=== PATIENT | female | born 1965 | race Caucasian/White ===

== ENCOUNTER → 2018-06-18 13:13 | Day surgery (SDC) | payer BC ==
--- NOTE | 2018-06-14 20:32 | HP ---
CC: Dr. Kiana Saenz * HISTORY AND PHYSICAL: DATE OF ADMISSION: 06/18/18 ADMITTING DIAGNOSES: 1. Calculus, right proximal ureter. 2. Right hydronephrosis. PLANNED PROCEDURE: Shock wave lithotripsy of calculus, right ureter and possible right stent insertion. SURGEON: Dr. Najera. HISTORY OF PRESENT ILLNESS: Jocy Bains is a 53-year-old lady who has had episodic right flank pain and nausea secondary to a calculus in the right proximal ureter. She had initially been managed conservatively, but followup ultrasound revealed persistent right hydronephrosis, and she would like to proceed with treatment of the calculus at this point. PAST MEDICAL HISTORY: Significant for: 1. Diabetes mellitus. 2. History of Neo's. 3. Depression. PAST SURGICAL HISTORY: Significant for cholecystectomy and tubal ligation. MEDICATIONS ON ADMISSION: 1. Prozac 20 mg daily. 2. Levothyroxine 100 mcg daily. 3. Metformin 500 mg q.a.m. and 1000 mg q.p.m. 4. Victoza 1.8 mg daily. 5. Montelukast 1 tablet daily. 6. Rosuvastatin 5 mg daily. ALLERGIES: No known drug allergies. FAMILY HISTORY: Nephew and brother both have had kidney stones. SOCIAL HISTORY: She is a nonsmoker. REVIEW OF SYSTEMS: She is otherwise in excellent health. She denies any chest pain or shortness of breath. PHYSICAL EXAMINATION GENERAL: Reveals a pleasant, middle-aged lady. VITAL SIGNS: Blood pressure 130/82; pulse 77 per minute, regular; temperature 96.8; oxygen saturation 96% on room air. LUNGS: Clear bilaterally. CARDIOVASCULAR: Regular rate and rhythm. S1, S2. ABDOMEN: Soft with mild right flank tenderness. IMPRESSION: A 53-year-old diabetic with a persistent calculus in the right proximal ureter and right hydronephrosis. PLAN: Planned procedure is shock wave lithotripsy of calculus right ureter and possible right stent insertion. [id number]/[facility] #: [id number] MTDD
[~2018-06-18 13:13] MED LIST: Buffered Lidocaine 1% SYRIN* 1 ML/SYRINGE INTRADERM ONE; Dexamethasone IV* 4 MG/ML 1 ML (4 MG) ONE; EPHEDrine (Pressors)* 50 MG/ML VIAL ONE; Famotidine IV* 10 MG/ML 2 ML (20 mg) IV ONE; Famotidine IV* 10 MG/ML 2 ML (20 mg) ONE; Iohexol 180 (CONTRAST) 10 ML SDV IV ONE; Lactated Ringers 1000 ML Bag* 1,000 ML IV SCH; Lidocaine 2% PF * 5 ML VIAL ONE; Midazolam* 1 MG/ML 5 ML VIAL (5 MG) ONE; Naloxone* 0.4 MG/ML 1 ML VIAL IV PRN; Ondansetron INJ* 2 MG/ML VIAL IV PRN; Ondansetron INJ* 2 MG/ML VIAL ONE; PROCHLORPERAZINE INJ 5 MG/ML 2 ML VIAL ONE; Propofol* 10 MG/ML 20 ML BTL ONE; Scopolamine 1.5 mg* PATCH ONE; Scopolamine PATCH Remove* 1 NOTE MISC PATCH OFF ONE; cefTRIAXone(*) 1 GM ADVAN/BAG ONE; cefTRIAXone(*) 2 GM ADDV.VIAL IVPB ONE; fentaNYL* 50 MCG/ML 2 ML VIAL (100 MCG VIAL) IV PRN; fentaNYL* 50 MCG/ML 2 ML VIAL (100 MCG VIAL) ONE; oxyCODONE/Acetamin 5/325 MG* TAB PO PRN
[2018-06-18 17:19] VITALS: BP 138/72
--- NOTE | 2018-06-19 03:17 | OP ---
CC: Dr. Kiana Saenz * DATE OF OPERATION: 06/18/18 - [facility] DATE OF : 63 SURGEON: Gutierrez Najera MD. ANESTHESIOLOGIST: Dr. Walsh. ANESTHESIA: General. PRE-OP DIAGNOSES: 1. Calculus, right proximal ureter. 2. Right hydronephrosis. POST-OP DIAGNOSES: 1. Calculus, right proximal ureter. 2. Right hydronephrosis. OPERATIVE PROCEDURES: 1. Shockwave lithotripsy of calculus, right ureter. 2. Cystoscopy, right retrograde pyelogram, and right stent insertion. COMPLICATIONS: None. STENT USED: A 6-Cuban stent, right ureter. INDICATIONS: Jocy Bains is a 53-year-old lady who has had right hydronephrosis secondary to a calculus in the right proximal ureter. OPERATIVE FINDINGS: Approximately 5-mm calculus in right proximal ureter with persistent right hydronephrosis noted. POSTOPERATIVE CONDITION: Stable. DESCRIPTION OF PROCEDURE: After induction of general anesthesia, the patient was placed on the lithotripsy table in the supine position. The calculus in the proximal right ureter was identified and shockwave lithotripsy was commenced at a rate of 90 shocks per minute. Periodic imaging revealed adequate localization and a total of 2000 shocks were administered. Next, the patient was placed in dorsal lithotomy position and retrograde pyelogram was performed after initial cystoscopy revealed a normal-appearing bladder. Retrograde pyelogram revealed right hydronephrosis and a 6-Cuban stent was introduced and positioned under fluoroscopy with good proximal and distal positioning obtained. The bladder was emptied. The patient tolerated the procedure satisfactorily and was transferred back to the recovery area in stable condition. [id number]/[facility] #: [id number] MTDD
== END | disposition home or self-care (01) ==
LOC: OR 13:13
PROVIDERS: ATTEND Urology
DX: N13.2 Hydronephrosis with renal and ureteral calculous obstruction (principal); E11.9 Type 2 diabetes mellitus without complications; Z79.84 Long term (current) use of oral hypoglycemic drugs; F41.8 Other specified anxiety disorders; J45.909 Unspecified asthma, uncomplicated; E03.9 Hypothyroidism, unspecified
CPT/HCPCS: 74018; A9270-GY; C1876; J0696; J0780; J1100; J2250; J2405; J2704; J3010